=== PATIENT | male | born 1990 | race African-American/Black ===

== ENCOUNTER 2018-04-27 07:11 | Emergency (ER) | payer OTHER ==
[~2018-04-27] VITALS: Ht 180.3 cm; Wt 83.8 kg
[2018-04-27 08:17] VITALS: BP 145/98
== END 2018-04-27 08:22 ==
LOC: EDBD 07:11 → EME 07:11
PROC: 0HQ3XZZ Repair Left Ear Skin, External Approach (ICD-10-PCS; principal; 2018-04-27)
PROC: 0HQ1XZZ Repair Face Skin, External Approach (ICD-10-PCS; principal; 2018-04-27)
DX: S01.81XA Laceration without foreign body of other part of head, initial encounter (principal); S01.312A Laceration without foreign body of left ear, initial encounter; X99.8XXA Assault by other sharp object, initial encounter; Y92.149 Unspecified place in prison as the place of occurrence of the external cause; Z87.891 Personal history of nicotine dependence
CPT/HCPCS: 99281; 99284